=== PATIENT | male | born 1965 | race Caucasian/White ===

== ENCOUNTER 2016-11-14 06:06 | Day surgery (SDC) | payer OTHER ==
[2016-11-14] MEDS ORDERED: ceFAZolin 2 GM/50 ML 50 ML IV ONE (06:33)
[2016-11-14] MEDS ORDERED: LACTATED RINGERS 1,000 ML IV ONE ×2 (07:04→09:05)
[2016-11-14] MEDS ORDERED: ePHEDrine 50 MG/ML VIAL IVP ONE (07:30)
[2016-11-14] MEDS ORDERED: ACETAMINOPHEN 1,000 MG/100 ML VIAL IV ONE (07:30)
[2016-11-14] MEDS ORDERED: LIDOCAINE-PF 2% 10 ML AMP SUBQ ONE (07:30)
[2016-11-14] MEDS ORDERED: PROPOFOL 1000 MG/100 ML IV ONE (07:30)
[2016-11-14] MEDS ORDERED: MIDAZOLAM 2 MG/2 ML VIAL IVP ONE (07:30)
[2016-11-14] MEDS ORDERED: ONDANSETRON 4 MG/2 ML VIAL IVP ONE (07:30)
[2016-11-14] MEDS ORDERED: fentaNYL 100 MCG/2 ML VIAL IVP ONE (07:30)
[2016-11-14] MEDS ORDERED: DEXAMETHASONE 4 MG/ML VIAL IVP ONE (07:30)
[2016-11-14] MEDS ORDERED: ROPIVACAINE 0.2% PF 20 ML AMPULE SUBQ ONE (08:13)
[2016-11-14] MEDS ORDERED: MORPHINE PF 5 MG/10 ML AMP SUBQ ONE (08:13)
[2016-11-14] MEDS ORDERED: BUPIVACAINE 0.5% PF 10 ML VIAL IM ONE (08:14)
[2016-11-14] MEDS ORDERED: oxyCOD/ACETAMIN 5 MG/325 MG TABLET PO ONE (10:17)
[2016-11-14 11:18] VITALS: BP 130/77
--- NOTE | 2016-11-14 12:28 | OPERATIVE REPORT ---
DATE OF SURGERY: 11/14/2016 00:00:00 [facility] MEDICAL RECORD: [id number]. PREOPERATIVE DIAGNOSIS: Right knee medial meniscus tear. POSTOPERATIVE DIAGNOSES 1. Right knee medial meniscus tear. 2. Right knee trochlea chondromalacia. OPERATIONS PERFORMED 1. Right knee arthroscopy with medial meniscus debridement. 2. Right knee arthroscopy with trochlear microfracture. PRIMARY SURGEON: Eula Connell MD. ANESTHESIA: Lenny Pinto CRNA. CIRCULATING NURSE: Paul Holcomb RN. SCRUB TECHS 1. CLIFFORD Riley, BSN. 2. Tacos Arguelles CST. ANESTHESIA: General via LMA. INTRAVENOUS FLUIDS: 1000 mL lactated Ringer's. BLOOD LOSS: 1 mL. ANTIBIOTICS: Ancef 2 grams IV. IMPLANTS: None. COMPLICATIONS: None. SPECIMENS: None. INDICATIONS FOR SURGERY: This is a 51-year-old male who has had right knee pain for approximately 7 months. His history is significant for previous medial meniscectomy in 2007. MRI was obtained by his primary care physician, which showed a recurrent medial meniscus tear. The risks, benefits, indications and expectations of treatment options were discussed with the patient. Risks of surgery to include, but not limited to infection, bleeding, damage to neurovascular structures, need for additional surgery, persistent or worsened pain, continued degeneration of cartilage, recurrent meniscus tear, decreased range of motion or stiffness, iatrogenic chondromalacia, iatrogenic fracture, deep vein thrombosis, pulmonary embolism, loss of limb, and loss of life were discussed with the patient. All questions were answered, the patient elected to proceed with surgery and informed consent was obtained. PROCEDURE: The patient was met in the preoperative hold area on the morning of surgery where we confirmed that we had the correct patient, planned to do the correct procedure, and had the correct extremity, which was the right lower extremity identified. Prior to the patient receiving any medications, the operative extremity was initialed by the surgeon. The patient was then brought back to the operating room in stable condition and placed supine on the operating room table. All bony prominences were well-padded, and sequential compression devices were placed on the nonoperative lower extremity. General anesthesia was induced without complication and an LMA was placed. The right lower extremity was then prepped and draped in the usual sterile fashion. After final draping, additional ChloraPrep was utilized on the operative site. Three minutes were allowed to elapse to enable the ChloraPrep to dry. We held a surgical time-out, where we confirmed that we had the correct the patient, planned to do the correct procedure, had the correct extremity, which was the right lower extremity identified. We also confirmed that all necessary equipment was in the room and confirmed sterile, that the patient had received preoperative antibiotics, and that no members of the operative team had any concerns. We began by making a standard anterolateral portal by sharply incising the skin with a #11 blade and then introducing a blunt trocar into the knee. We were unable initially to gain access into the patellofemoral joint, therefore we began our examination in the notch. We then continued into the medial compartment, where under direct visualization we made a standard anteromedial portal by first localizing with an 18-gauge spinal needle and then utilizing an 11 blade, sharply incising the skin, and then a blunt trocar to further develop the portal. We then introduced a probe and continued our examination. There was a large amount of scar tissue in the area of the anterior medial portal. We then identified a tear in the posterior horn of the medial meniscus, which involved both fraying on the edge, as well as a horizontal aspect of the tear. The medial tibial plateau and medial femoral condyle were both notable for grade 1 diffuse chondromalacia with softening. We then continued our diagnostic exam into the notch, where the ACL was noted to be intact, as was the PCL. We then continued to the lateral compartment, where the lateral meniscus was intact. There was no significant chondromalacia of the lateral compartment. We then inserted a sucker shaver and began debriding the medial meniscus. After debriding the edges of the medial meniscus, we then utilized a biter to debride the inferior aspect of the horizontal tear. We then reintroduced a sucker shaver and continued to debride this back to a smooth edge. We then introduced a probe and determined that the medial meniscus that remained was stable. We then reinserted the sucker shaver and debrided the scar tissue about the anterior medial aspect of the knee. After doing this, we were then able to examine the patellofemoral joint, which was notable for grade 4 chondromalacia measuring 5 mm x 10 mm in the trochlea. There was diffuse grade 1 chondromalacia of the patella. We then reintroduced the sucker shaver again and debrided the trochlea of any loose cartilage. We then introduced a curet and created 90 degree parker to the trochlear lesion. I then utilized a bur to remove the calcified cartilage layer from the lesion and then utilized a microfracture awl to place 2 holes into the bone and observed bleeding and adipose droplets from the 2 holes. We then withdrew all arthroscopic instruments. The portals were closed utilizing 3-0 Monocryl in a buried fashion. We then placed Mastisol and Steri-Strips over the incisions. The incisions were then dressed with sterile Xeroform, plain gauze, and an abdominal pad. A JUWAN hose was then placed over this. All sponge counts and needle counts were correct at the conclusion of the case. The knee was injected with 10 mg of Duramorph and 10 mg of Naropin for postoperative analgesia. JUWAN hose was then placed over the dressings. The patient was awakened from general anesthesia without complication and taken to the PACU in stable condition. POSTOPERATIVE PLAN: He may ambulate with his knee locked in extension. He may range his knee from 0-30 degrees. The patient will begin with a constant passive motion machine for 6-8 hours a day starting today with range from 0-45. I will see the patient back in 10 days, at which time we will initiate physical therapy. Report edited and signed 11/18/2016 by Eula Connell MD. JOB #: [id number] EXT JOB #:[id number]
== END 2016-11-14 06:07 | disposition home or self-care (01) ==
LOC: SDS 06:06
PROVIDERS: ATTEND Orthopaedic Surgery
PROC: 0SQC4ZZ Repair Right Knee Joint, Percutaneous Endoscopic Approach (ICD-10-PCS; 2016-11-14)
PROC: 0SBC4ZZ Excision of Right Knee Joint, Percutaneous Endoscopic Approach (ICD-10-PCS; principal; 2016-11-14 07:30)
DX: S83.241A Other tear of medial meniscus, current injury, right knee, initial encounter (principal); M94.261 Chondromalacia, right knee; I10 Essential (primary) hypertension; E78.5 Hyperlipidemia, unspecified; K21.9 Gastro-esophageal reflux disease without esophagitis; Z79.82 Long term (current) use of aspirin
CPT/HCPCS: 29879; 29881; A9270; J0131; J0690; J7120